=== PATIENT | male | born 1990 | race Caucasian/White ===

== ENCOUNTER 2018-04-16 11:24 | Emergency (ER) ==
[2018-04-16 11:28] VITALS: BP 134/84; TEMP 97.5; BMI 31.9
--- NOTE | 2018-04-16 11:55 | ED.PDOC ---
General ED Provider: Dr. AILYN OCONNOR Chief Complaint: Tooth Problem Stated Complaint: Tooth ache and dental abscess. States hx of wisdom tooth problem for over a year. [place] on [employer] [place] States has had xrays taken in [place] previously. Offered patient injectable meds for pain -refused will only take oral meds. Time Seen by Physician: 11:40 (accompanied by his girlfriend.) Mode of Arrival: Walk-In Information Source: Patient Exam Limitations: No limitations Primary Care Provider: AILYN BLOUNT Nursing and Triage Documentation Reviewed and Agree: Yes Does patient meet sepsis criteria?: No System Inflammatory Response Syndrome: Not Applicable Sepsis Protocol: For patient's 13 years and over: Temp is 96.8 and below OR 101 and greater Pulse >90 BPM Resp >20/minute Acutely Altered Mental Status Are patient's symptoms suggestive of a new infection, such as: -Pneumonia -Skin, Soft Tissue -Endocarditis -UTI -Bone, Joint Infection -Implantable Device -Acute Abdominal Infection -Wound Infection -Meningitis -Blood Stream Catheter Infection -Unknown EENT Complaint Exam - Dental/Oral Complaint/Exam Mechanism of Injury: Unknown Onset/Duration: 1-2 weeks up to 1 year Symptoms Are: Still present Timing: Constant Initial Severity: Moderate Current Severity: Moderate Location: Lt facial and maxillary region Character: Reports: Aching, Throbbing Aggravating: Reports: Cold, Chewing Alleviating: Reports: None Associated Signs and Symptoms: Reports: Swelling. Denies: Discharge, Fever, Foul odor, Foul taste in mouth Related History: Reports: Similar episode, Previous tooth problem, Third molars present Cardiac Risk Factors: Reports: None Dental/Oral Surgical History: Reports: None Tooth Findings: Present: Percussion tenderness, Abcess Cervical Lymphadenopathy Present: No Facial Swelling Present: Yes (Lt side) Bleeding Present: No Oropharynx Findings: Absent: Clots, Active bleeding Septal Hematoma: No Foreign Body Present: No Dysphagia Present: No Drooling Present: No Asymmetrical Tonsillar Swelling Present: No Uvula Midline: Yes Brisa-tonsillar Fluctuence: No Trismus Present: No Palatal Petechiae Present: No Scarlatinaform Rash Present: No Lesions: Absent: Lip, Gums, Tongue, Buccal Mucosa, Pharynx Exanthem: Absent: Lip, Gums, Tongue, Buccal Mucosa, Pharynx Vesicles: Absent: Lip, Gums, Tongue, Buccal Mucosa Differential Diagnoses: Dental Abcess Review of Systems - Review Of Systems Constitutional: Reports: No symptoms Eyes: Reports: No symptoms Ears, Nose, Mouth, Throat: Reports: No symptoms, Mouth pain Respiratory: Reports: No symptoms Cardiac: Reports: No symptoms GI: Reports: No symptoms : Reports: No symptoms Musculoskeletal: Reports: No symptoms Skin: Reports: No symptoms Neurological: Reports: No symptoms Endocrine: Reports: No symptoms Hematologic/Lymphatic: Reports: No symptoms All Other Systems: Reviewed and Negative Past Medical History - Past Medical History Previously Healthy: Yes Endocrine: Reports: None Cardiovascular: Reports: None Respiratory: Reports: None Hematological: Reports: None Gastrointestinal: Reports: None Genitourinary: Reports: None Neuro/Psych: Reports: None Musculoskeletal: Reports: None Cancer: Reports: None - Surgical History General Surgical History: Reports: None - Family History Family History: Reports: None - Social History Smoking Status: Current every day smoker Hx Substance Use: No Alcohol Screening: Occasionally Physical Exam - Physical Exam Appearance: Well-appearing, Well-nourished, Obese Ill-appearing: None Pain Distress: Moderate Eyes: ONEIDA, EOMI, Conjunctiva clear ENT: Ears normal, Nose normal, Oropharynx normal (Tenderness over upper lt mid maxillary region ) Neck: Supple Respiratory: Airway patent, Breath sounds clear, Breath sounds equal, Respirations nonlabored Cardiovascular: RRR, Pulses normal, No rub, No murmur GI/: Soft, Nontender, No masses, Bowel sounds normal, No Organomegaly Musculoskeletal: Normal strength, ROM intact, No edema, No calf tenderness Skin: Warm, Dry, Normal color Neurological: Sensation intact, Motor intact, Reflexes intact, Cranial nerves intact, Alert, Oriented Psychiatric: Affect appropriate, Mood appropriate Critical Care Note - Critical Care Note Total Time (mins): 0 Course - Course Vital Signs: Temp Pulse Resp BP Pulse Ox 04/16/18 11:26 97.5 F L 92 H 16 134/84 97 Departure - Departure Time of Disposition: 12:50 Disposition: HOME SELF-CARE Discharge Problem: Facial cellulitis, Maxillary sinusitis Instructions: Cellulitis (ED), Sinusitis (ED) Condition: Fair Pt referred to PMD for follow-up: Yes (next 48 hrs) IPMP verified?: Yes (neg) Additional Instructions: apply warm moist heat to area of swelling for 20 minutes 2-3 times daily Take analgesics for pain control plus antibiotics See PCP in next 48 hrs Prescriptions: Hydrocodone Bit/Acetaminophen [Jackson 7.5-325] 1 each PO Q4HR PRN #10 tablet PRN Reason: Pain unrelieved by NSAID Clindamycin HCl [Cleocin HCl] 300 mg PO QID 7 Days #28 capsule Ketorolac Tromethamine [Toradol] 10 mg PO Q6H #20 tablet Allergies/Adverse Reactions: Allergies Penicillins Adverse Reaction (Verified 04/16/18 11:28) Home Medications: Ambulatory Orders 1 [No Reported Medications] 0 mg PO DAILY 02/02/13 Clindamycin HCl [Cleocin HCl] 300 mg PO QID 7 Days #28 capsule 04/16/18 Hydrocodone Bit/Acetaminophen [Jackson 7.5-325] 1 each PO Q4HR PRN #10 tablet 06/23 Ketorolac Tromethamine [Toradol] 10 mg PO Q6H #20 tablet 04/16/18 Disposition Discussed With: Patient
[2018-04-16] MEDS ORDERED: TORADOL PO STA (11:57)
--- NOTE | 2018-04-16 12:47 | CT ---
EXAM: CT FACIAL BONES HISTORY: Pain and swelling left sided base. TECHNIQUE: CT facial bones without contrast. 3-mm axial sections. Coronal and sagital reformations . FINDINGS: There is swelling and subcutaneous fat stranding of the left lower face. No soft tissue gas or visib le radiopaque foreign body is identified. Extending along the left masseter muscles with a thickness of about 9.5 mm is a mass or collection about the same attenuation as the parotid gland. This may r epresent anterior extension of the parotid gland tissue or a focal complex fluid collection. Exam is limited without the administration of intravenous contrast agent. No comparison studies were availa ble. There is moderate circumferential mucosal thickening of the left maxillary sinus. No definite l eft-sided tooth root abscesses are seen. The mastoid processes are aerated. Prominent cervical hugo n lymph nodes are seen more noticeable on the left possibly related to adenitis. IMPRESSION: 1. Probable left facial cellulitis. Cannot exclude a small complex fluid collection lateral to the left masseter muscle, versus anterior extension of regional parotid gland tissue.. 2. Chronic left maxillary sinusitis. 3. Left cervical lymphadenitis.
== END 2018-04-16 13:35 | disposition home or self-care (01) ==
LOC: ED 11:24
DX: L03.211 Cellulitis of face (principal); J32.0 Chronic maxillary sinusitis; K08.89 Other specified disorders of teeth and supporting structures; F17.210 Nicotine dependence, cigarettes, uncomplicated
CPT/HCPCS: 99282